=== PATIENT | female | born 1955 | race Caucasian/White ===

== ENCOUNTER 2017-11-30 13:51 | Emergency (ER) | payer OTHER ==
[~2017-11-30] VITALS: Ht 154.9 cm; Wt 44.5 kg
[2017-11-30] MEDS ORDERED: TAMS0.4C PO (20:57)
[2017-11-30] MEDS ORDERED: URIN D.S. TABL1 EACH PO (20:57)
[2017-11-30] MEDS ORDERED: KETO10TA2 PO (20:57)
[2017-11-30] MEDS ORDERED: CIPRO500 MG PO (20:57)
== END 2017-11-30 21:13 | disposition home or self-care (01) ==
LOC: ER 13:51
DX: R10.32 Left lower quadrant pain (principal); N20.2 Calculus of kidney with calculus of ureter; N39.0 Urinary tract infection, site not specified

== ENCOUNTER 2021-01-19 00:14 | Emergency (ER) | payer OTHER ==
[~2021-01-19] VITALS: Ht 121.9 cm; Wt 38.1 kg
[~2021-01-19 00:14] MED LIST: CIPRO500 MG PO; KETO10TA2 PO; TAMS0.4C PO; URIN D.S. TABL1 EACH PO
[2021-01-19] MEDS ORDERED: SYNTHROID (01:12)
[2021-01-19] MEDS ORDERED: NORFLEX100MG PO (05:04)
[2021-01-19] MEDS ORDERED: KETO10TA2 PO (05:04)
== END 2021-01-19 05:58 | disposition home or self-care (01) ==
LOC: ER 00:14
DX: R07.89 Other chest pain (principal); M25.562 Pain in left knee; E03.9 Hypothyroidism, unspecified; R04.0 Epistaxis